=== PATIENT | male | born 1960 | race Caucasian/White ===

== ENCOUNTER 2020-12-27 10:29 | Emergency (ER) | payer MEDICARE, MEDICAID, SELFPAY ==
[2020-12-27 11:08] VITALS: BP 127/106; PULSE 95; RESP 16; TEMP 37; O2SAT 98; BMI 28.0
--- NOTE | 2020-12-27 11:10 | ED_ITS ---
HPI - Extremity Problem General Chief complaint: Extremity Injury, Upper Stated complaint: lt arm injury, fall Time Seen by Provider: 12/27/20 11:10 Source: patient Mode of arrival: ambulatory Limitations: no limitations History of Present Illness HPI Narrative: slipped out of bed and hit his walker patient did this days ago Complaint: extremity pain Onset (ago): day(s) Pain Consistency: constant Location: left Quality: sharp Associated symptoms: denies other symptoms Related Data Allergies Allergy/AdvReac Type Severity Reaction Status Date / Time No Known Allergies Allergy Unverified 08/10/20 15:11 Review of Systems Constitutional: Constitutional: Reports no additional constitutional complaints Eyes: Eyes: Reports no additional eye complaints ENT: Denies dizziness Cardiovascular: Cardiovascular: Reports no additional cardiovascular complaints Respiratory: Respiratory: Reports as per HPI Gastrointestinal: Gastrointestinal: Reports no additional gastrointestinal complaints Musculoskeletal: Musculoskeletal: Reports no additional musculoskeletal complaints Integumentary/Breasts: Skin/Breast: Denies rash Neurologic: Reports system reviewed and no additional complaints, except as documented, Denies dizziness and Denies Sensory deficit (Neuro) Psychiatric: Psychiatric: Denies anxiety [facility] Past Medical History Medical History HTN (hypertension) Social History Social History Smoking Status: Current every day smoker Use of substances other than those prescribed or required for medical reasons: No Advance Directives: No Advance Directives Information Provided: No Physical Exam Vital Signs: Vital Signs: Last Vital Signs Temp 98.6 F 12/27/20 11:08 Pulse 100 12/27/20 13:00 Resp 22 H 12/27/20 13:00 BP 128/89 12/27/20 13:00 Pulse Ox 97 12/27/20 13:00 Body Mass Index 28.0 Const: Other: unkept male looking older than stated age Nutritional Appearance: average body habitus Orientation/consciousness: oriented to person and patient oriented x3 Limitations: no limitations HENMT: Head: Yes normal to inspection Ears: external ears normal General nose exam: Normal external nose present Mouth: Normal oral and palatal mucosa present and oropharynx normal Throat: Yes posterior oropharynx normal Eyes: General: appearance normal, both eyes and all related structures Neck: Other: supple Neck: Yes normal visual inspection Chest: Chest palpation & inspection: normal inspection of the chest Resp: Auscultation: clear to auscultation bilaterally Cardio: Jugular venous distension: no JVD Rate: regular rate Rhythm: regular rhythm Heart sounds: S1 normal heart sound present and S2 normal heart sound present GI: Inspection: Yes normal to inspection Palpation (GI): Soft to palpation, nontender and No hepatosplenomegaly present Auscultation: normal bowel sounds : General: Yes no CVA tenderness Back/Spine/Pelvis: Back: no CVA tenderness Skin: General skin exam: no rashes or lesions noted Neuro: General: oriented to person and patient oriented x3 Cranial nerves: Yes CN's II-XII intact bilaterally Motor exam (neuro): 5/5 motor strength present throughout Sensory Exam: No Sensory deficit (Neuro) Extrem: Other: ecchymosis down left shoulder, shoulder feels dislocated Psych: Appearance: grossly normal Course Course Course Narrative: conscious sedation: patient on monitor, CO2 monitoring received versed, fentanyl and etomidate for conscious sedation. Patient monitored for 30 minutes Procedures Procedure Narrative Procedure Narrative: conscious sedation: patient on monitor, CO2 monitoring received versed, fentanyl and etomidate for conscious sedation. Patient monitored for 30 minutes MDM - Extremity (Nontraumatic) Imaging Data shoulder: Radiologist's impression: dislocation shoulder reduction: Attestation: I personally reviewed and interpreted this imaging study as follows: My impression: reduced Discharge Plan Discharge Clinical Impression: Anterior shoulder dislocation Qualifiers: Encounter type: initial encounter Laterality: left Qualified Code(s): S43.015A - Anterior dislocation of left humerus, initial encounter Patient Disposition: Home, Self-Care Instructions: Closed Reduction (ED), Shoulder Dislocation (ED) Additional Instructions: sling and swath Referrals: Kelli Sanchez MD [Physician] - 2 days
--- NOTE | 2020-12-27 11:14 | XR_ITS ---
EXAMINATION: XR SHOULDER, LEFT CLINICAL INFORMATION: Fall with pain COMPARISON: None TECHNIQUE: Three-view left shoulder of the left shoulder. FINDINGS: There is an anterior dislocation of the left shoulder no acute fracture is appreciated. XR/XR shoulder LT min 2V IMPRESSION: Anterior dislocation of the left shoulder.
--- NOTE | 2020-12-27 12:22 | PC.NURSE ---
dr stout at bedside for shoulder relocation after review of xrays
[2020-12-27 12:35] VITALS: BP 158/83; PULSE 95; RESP 17; O2SAT 97
[2020-12-27 12:43] VITALS: BP 157/92; PULSE 93; RESP 16; O2SAT 97
--- NOTE | 2020-12-27 12:44 | XR_ITS ---
EXAMINATION: XR SHOULDER, LEFT CLINICAL INFORMATION: Post reduction COMPARISON: Left shoulder 01/16/2021 TECHNIQUE: One view of the left shoulder. FINDINGS: Status post reduction there is normal alignment of the left humeral head or there is no visible fracture or bony abnormality. The soft tissues are normal. XR/XR shoulder LT 1V IMPRESSION: Normal alignment shoulder joint S/P reduction.
[2020-12-27] MEDS: Etomidate 20 MG/10 ML VIAL 25.8549 MG IVPUSH (12:46)
[2020-12-27] MEDS: fentaNYL citrate/PF 100 MCG/2 ML VIAL IVPUSH (12:47)
[2020-12-27] MEDS: Midazolam HCl/PF 2 MG/2 ML VIAL 4 MG IVPUSH (12:47)
[2020-12-27 12:57] VITALS: BP 148/78; PULSE 99; RESP 22; O2SAT 97
[2020-12-27 13:00] VITALS: BP 128/89; PULSE 100; RESP 22; O2SAT 97
--- NOTE | 2020-12-27 13:03 | PC.NURSE ---
pt had conscious sedation successfully completed by md stout at bedside, all consents signed and completed in chart. medicated per emar. shoulder appears to have reduced, xray confirmation. swath and sling placed. pt tolerated procedure well, vss. wctm for discharge needs.
--- NOTE | 2020-12-27 14:30 | PC.NURSE ---
responsible alliance party for pt signed and discharge instructions given to pt and responsible alliance party.
== END 2020-12-27 14:32 | disposition home or self-care (01) ==
PROVIDERS: Emergency Provider Emergency Medicine; PCP Internal Medicine
DX: S43.015A Anterior dislocation of left humerus, initial encounter (principal); W06.XXXA Fall from bed, initial encounter; I10 Essential (primary) hypertension; F17.210 Nicotine dependence, cigarettes, uncomplicated; Y93.84 Activity, sleeping; Y92.013 Bedroom of single-family (private) house as the place of occurrence of the external cause; Y99.9 Unspecified external cause status
CPT/HCPCS: 23655; 73020; 73030; 96374; 96375; 99152; 99153; 99284; 99285; J2250; J3010

== ENCOUNTER → 2021-01-05 12:43 | Outpatient (BNVA) | payer MEDICARE, MEDICAID, SELFPAY | PROVIDERS: PCP Internal Medicine; Visit Provider Physician Assistant | DX: S43.005A Unspecified dislocation of left shoulder joint, initial encounter (principal); S44.30XA Injury of axillary nerve, unspecified arm, initial encounter | CPT/HCPCS: 99202 ==

== ENCOUNTER → 2021-02-02 11:01 | Outpatient (BNVA) | payer MEDICARE, MEDICAID, SELFPAY | PROVIDERS: Visit Provider Physician Assistant | DX: S44.3 Injury of axillary nerve (principal); S43.005D Unspecified dislocation of left shoulder joint, subsequent encounter | CPT/HCPCS: 99212 ==

== ENCOUNTER 2021-02-26 09:56 | Outpatient (REF) | payer MEDICARE, MEDICAID, SELFPAY ==
--- NOTE | ~2021-02-26 | MR_ITS ---
EXAMINATION: MRI LEFT SHOULDER WITHOUT CONTRAST CLINICAL INFORMATION: Left shoulder pain. COMPARISON: Radiographs 12/27/2020. TECHNIQUE: MRI of the shoulder without contrast is performed on a 1.5 [place] high-field scanner. FINDINGS: ROTATOR CUFF: The supraspinatus and infraspinatus tendons are completely torn and retracted medially beyond the apex of the humeral head, approximately 3.5 cm. Subscapularis tendinopathy with ill-defined partial tearing at the tendon insertion. The teres minor tendon appears intact. Moderate atrophy and mild fatty infiltration of the supraspinatus, infraspinatus, and subscapularis muscles. BICEPS: Biceps tendinopathy with ill-defined partial tearing as it drapes over the lesser tuberosity into the bicipital groove. CORACOACROMIAL ARCH: The undersurface of the acromion is curved with mild subacromial spurring. Moderate acromioclavicular osteoarthritis. LABRUM/CAPSULE: No discrete labral tear. The superior labrum appears degenerative, and attenuated posteriorly. GLENOHUMERAL JOINT/MARROW: Humeral head is posterosuperiorly subluxed. There are degenerative marrow changes along the greater tuberosity. There is a moderate joint effusion with mild synovitis. ADDITIONAL FINDINGS: None. MR/MR shoulder LT wo con IMPRESSION: Completely torn and retracted supraspinatus and infraspinatus tendons. Ill-defined partial tearing of the subscapularis tendon insertion. There is moderate atrophy and mild fatty infiltration of these muscles. Mild/moderate acromioclavicular and glenohumeral osteoarthritis. There is a glenohumeral joint effusion and the humeral head is posterosuperiorly subluxed. Proximal biceps tendinopathy with ill-defined partial tearing as it enters the bicipital groove.
== END 2021-02-26 09:57 | disposition home or self-care (01) ==
LOC: HO.MRI 09:56
PROVIDERS: Visit Provider Physician Assistant
DX: S46.002A Unspecified injury of muscle(s) and tendon(s) of the rotator cuff of left shoulder, initial encounter (principal)
CPT/HCPCS: 73221

== ENCOUNTER → 2021-03-02 09:33 | Outpatient (BNVA) | payer MEDICARE, MEDICAID, SELFPAY | PROVIDERS: PCP Internal Medicine; Visit Provider Physician Assistant | DX: S44.3 Injury of axillary nerve (principal); S43.005D Unspecified dislocation of left shoulder joint, subsequent encounter; M75.102 Unspecified rotator cuff tear or rupture of left shoulder, not specified as traumatic; M12.812 Other specific arthropathies, not elsewhere classified, left shoulder | CPT/HCPCS: Q3014 ==

== ENCOUNTER → 2021-05-02 11:49 | Outpatient (BNVA) | payer MEDICARE, MEDICAID, SELFPAY | PROVIDERS: PCP Internal Medicine; Visit Provider Physician Assistant | DX: S44.3 Injury of axillary nerve (principal) | CPT/HCPCS: 99212 ==

== ENCOUNTER 2021-05-03 13:00 | Outpatient (RCR) | payer MEDICARE, MEDICAID, SELFPAY ==
--- NOTE | 2021-03-21 15:56 | MHC.PT.EP ---
[facility] [place] Office [place] [facility] [place] Office [address] Ramesh Brunner [address] [phone] F: [phone] F: [phone] F: [phone] F: [phone] Physical Therapy Plan of Care Date of Evaluation: Date of Surgery: Diagnosis: INJURY OF AXILLARY NERVE DSLOCATION L SHLDER JT Assessment: Pt IS 60 YO RHD M REFERRED TO PT FROM ORTHO S/P L SHLDER DISCOCATION WITH RELOCATION IN ER AT THE BEGINNING OF DEC 2020 AFTER FALLING OUT OF BED REACHING FOR PHONE, Pt WAITED 2 DAYS BEFORE GOING TO ER. FOUND TO HAVE AXILLARY N DAMAGE AND RC TEARS NOTED ON MRI (SEE MRI REP). Pt PRESENTS TO PT WITH INABILITY TO ACTIVELY FLEX OR ABD HIS L ARM. REPORTS NUMBNESS L FOREARM (UNDERNEATH FROM ELBOW TO WRIST). REPORTS IMPROVED MOVEMENT L PINKY AND RING FINGER. SIGNIFICANT DECREASE IN ROM (EVEN PROM) L SHLDER AND DECREASED STRENGTH. WHOULD BENEFIT FROM PT TO ADDRESS THESE ISSUES WITH THE HOPE OF RETURN OF AXILLARY N FUNCTION TO DELTOID TO IMPROVE ROM/STRENGTH (Pt ALSO WITH RC TEARS) Frequency and Duration: The patient will be seen 2X/WK X 8 WKS..Pt OPTS FOR 1X/WK FOR TRANSP/SCHEDULING PURPOSES Short Term Goals: 1. INCREASED POSTURE AWARENESS AND AWARENESS SHLDER CARE 2. LESS NUMBNESS REPORTED L FOREARM 3. I HEP FOR AAROM L SHLDER Longterm Goals: 1. INCREASED L SHLDER STRENGTH 1-2 MMGRADES 2. DECREASED L SHLDER /UT PAIN AT LEAST 50% WITH ADLS 3. I HEP WITH DC EX PLAN 4. AROM L SHLDER WFLS Treatment Plan: Modalities to reduce pain, spasms and effusion. Manual therapy to restore motion and function. Therapeutic exercise to improve strength and flexibility. Neuromuscular re-education for posture and balance. Therapeutic activities to return to functional activities of daily living. Electronically signed by: JAXON JORGE PT Please sign and return to therapist. Thank you for your referral.
--- NOTE | 2021-09-26 08:10 | MHC.PT.DC ---
[facility] [place] Office [employer] Office [place] Office [address] Ramesh Brunner [address] [phone] F: [phone] F: [phone] F: [phone] F: [phone] Physical Therapy Discharge Report Diagnosis: INJURY OF AXILLARY NERVE DSLOCATION L SHE AHUMADA Date of Surgery: Date of Evaluation: 03/21/21 Date of Discharge: 09/26/21 Treatments to Date: 5 Cancellations to Date: No Shows to Date: Discharge Status: Recommend MD Follow-up Discharge Summary: PER ASSESSMENT BY KIRT GALLOWAY PT,DPT AT Pt'S LAST VISIT ON 05/03/21: 'Pt continues to be unable to actively abduct, 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 Pt has been issued HEP program for AAROM, has obtained shoulder jimmy for home. Pt has been attending therapy 1x/weekly due to transportation/scheduling since start of care on 03/21/21, now attending 5th session.. reports ongoing inability to abduct or ER arm.. He has been educated re: AAROM program for L shoulder, encouraged to stretch a few times per day to maintain joint flexibiity. He has ordered an over the door jimmy for assistance. Poor ability to abduct L UE persists, unable to ER arm actively. Able to perform limited range of motion with assistance from L UE. Patient educated re: unsure whether or not he will regain full function of his L UE given his history of injury- hx nerve injury. Pt has decreased understanding re: nerve injury, RTC tear. He was encourage to follow up with AAROM program within his tolerance.' WITH PLAN 'D/C pt to I AAROM HEP Program due to plateaued status' [ End ] Electronically signed by: JAXON JORGE PT Please sign and return to therapist. Thank you for your referral.
== END 2021-09-26 08:11 | disposition home or self-care (01) ==
LOC: HO.PTWFD 13:00
PROVIDERS: PCP Internal Medicine; Visit Provider Physician Assistant
DX: S44.30XA Injury of axillary nerve, unspecified arm, initial encounter (principal); S43.005A Unspecified dislocation of left shoulder joint, initial encounter
CPT/HCPCS: 97110; 97140; 97162; 97530

== ENCOUNTER → 2021-06-13 12:33 | Outpatient (BNVA) | payer MEDICARE, MEDICAID, SELFPAY | PROVIDERS: PCP Internal Medicine; Visit Provider Physician Assistant | DX: M75.102 Unspecified rotator cuff tear or rupture of left shoulder, not specified as traumatic (principal); M12.812 Other specific arthropathies, not elsewhere classified, left shoulder; S44.30XA Injury of axillary nerve, unspecified arm, initial encounter | CPT/HCPCS: 99212 ==

== ENCOUNTER 2021-09-05 12:04 | Outpatient (REF) | payer MEDICARE, MEDICAID, SELFPAY ==
--- NOTE | ~2021-09-05 | XR_ITS ---
EXAMINATION: XR SHOULDER, LEFT CLINICAL INFORMATION: Left shoulder pain. COMPARISON: Left shoulder MRI dated 02/26/2021. TECHNIQUE: AP, scapular Y, and axillary views of the left shoulder. FINDINGS: Superior subluxation of the humeral head consistent with the previously seen rotator cuff tendon tear. Moderate acromioclavicular osteoarthritis with subacromial spurring, unchanged. No glenohumeral joint space narrowing or marginal osteophytes. No osseous erosion. No acute fracture or dislocation. XR/XR shoulder LT min 2V IMPRESSION: Chronic superior subluxation of the humeral head related to the rotator cuff tendon tear, unchanged. Moderate acromioclavicular osteoarthritis and subacromial spurring, unchanged.
== END 2021-09-05 12:05 | disposition home or self-care (01) ==
LOC: HO.HOSX 12:04
PROVIDERS: Visit Provider Physician Assistant
DX: M75.102 Unspecified rotator cuff tear or rupture of left shoulder, not specified as traumatic (principal); M12.812 Other specific arthropathies, not elsewhere classified, left shoulder; S44.30XA Injury of axillary nerve, unspecified arm, initial encounter
CPT/HCPCS: 73030; 99212